=== PATIENT | female | born 1985 | race Caucasian/White ===

== ENCOUNTER → 2018-06-03 | Outpatient (CLI) | payer BC ==
--- NOTE | 2018-06-03 07:56 | US ---
EXAMINATION TYPE: US venous doppler duplex UE RT DATE OF EXAM: 06/03/2018 COMPARISON: NONE CLINICAL HISTORY: Z86.718 Personal hx of other venous thrombosis .... Pain SIDE PERFORMED: Right Patient has history of blood clot when she was 15. Right Arm: Negative for DVT Grayscale, color doppler, spectral doppler imaging performed of the deep veins of the right upper ext remity. There is normal flow, compressibility and vascular waveforms. IMPRESSION: No acute superficial or deep venous thrombosis in the right upper extremity identified.
== END | disposition home or self-care (01) ==
LOC: RADUSWWP 06:54 → MERGE 07:00
PROVIDERS: ATTEND Family Medicine
DX: R60.0 Localized edema (principal); Z86.718 Personal history of other venous thrombosis and embolism

== ENCOUNTER → 2018-06-10 | Outpatient (CLI) | payer BC ==
--- NOTE | 2018-06-10 09:39 | MM ---
Reason for exam: screening (asymptomatic). Baseline mammogram. History: Family history of breast cancer in maternal grandmother at age 40 and breast cancer in paternal grandmother at age 60. Physical Findings: Nurse did not find any significant physical abnormalities on exam. MG Screening Mammo w CAD Bilateral CC and MLO view(s) were taken. The breast tissue is heterogeneously dense. This may lower the sensitivity of mammography. Finding: There are typically benign round, diffuse/scattered calcifications in both breasts. There is no discrete abnormality. These results were verbally communicated with the patient and result sheet given to the patient on 06/10/18. ASSESSMENT: Benign, BI-RAD 2 RECOMMENDATION: Routine screening mammogram of both breasts at age 41.
== END ==
LOC: RADMAMWWP 06:53 → MERGE 07:00
PROVIDERS: ATTEND Family Medicine
DX: Z08 Encounter for follow-up examination after completed treatment for malignant neoplasm (principal); Z80.3 Family history of malignant neoplasm of breast
CPT/HCPCS: 77067

== ENCOUNTER → 2018-06-24 | Outpatient (CLI) | payer BC ==
[2018-06-24 16:57] LABS: HCT 37.5 % (34.0-46.0); HGB 12.2 gm/dL (11.4-16.0); MCHC 32.6 g/dL (31.0-37.0); Mean Platelet Volume 8.5; Platelet Count 273 k/uL (150-450); RBC 4.22 m/uL (3.80-5.40); RDW 13.3 % (11.5-15.5); WBC 7.1 k/uL (3.8-10.6)
[2018-06-24 17:06] LABS: Anion Gap 9 mmol/L; Blood Urea Nitrogen 8 mg/dL (7-17); Carbon Dioxide 25 mmol/L (22-30); Chloride 106 mmol/L (98-107); Potassium 4.7 mmol/L (3.5-5.1); Sodium 140 mmol/L (137-145)
== END | disposition home or self-care (01) ==
LOC: LABPAT 16:04
PROVIDERS: ATTEND Internal Medicine Interventional Cardiology
DX: Z01.812 Encounter for preprocedural laboratory examination (principal); I82.A11 Acute embolism and thrombosis of right axillary vein
CPT/HCPCS: 36415; 80051; 82565; 84520; 85027

== ENCOUNTER → 2018-06-25 | Day surgery (SDC) | payer BC ==
[2018-06-24 13:24] VITALS: BMI 21.9
[~2018-06-25] MED LIST: ASPIRIN 325 MG TAB PO STA; IOPAMIDOL-250 50ML BTL IV ONE; MIDAZOLAM (PF) 2 MG/2 ML VIAL IVP ONE; SODIUM CHLORIDE 0.9% 1,000 ML IV SCH
[2018-06-25 07:46] VITALS: RESP 18; TEMP 98.3
[2018-06-25 07:53] LABS: Basophils % (A) 1 %; Eosinophils # (A) 0.1 k/uL (0-0.7); Eosinophils % (A) 2 %; Lymphocytes # (A) 1.3 k/uL (1.0-4.8); Lymphocytes % (A) 26 %; MCH 29.4 pg (25.0-35.0); MCHC 33.4 g/dL (31.0-37.0); Mean Platelet Volume 8.2; Monocytes # (A) 0.4 k/uL (0-1.0); Monocytes % (A) 7 %; Neutrophils # (A) 3.2 k/uL (1.3-7.7); Neutrophils % (A) 63 %; Platelet Count 236 k/uL (150-450); RBC 4.09 m/uL (3.80-5.40); RDW 13.4 % (11.5-15.5); WBC 5.2 k/uL (3.8-10.6)
[2018-06-25 08:03] LABS: Anion Gap 8 mmol/L; Blood Urea Nitrogen 15 mg/dL (7-17); Calcium 9.3 mg/dL (8.4-10.2); Carbon Dioxide 24 mmol/L (22-30); Chloride 107 mmol/L (98-107); Glucose 82 mg/dL (74-99); Potassium 4.2 mmol/L (3.5-5.1); Sodium 139 mmol/L (137-145)
[2018-06-25 13:14] VITALS: BP 113/68; PULSE 72
--- NOTE | 2018-06-25 14:05 | IR ---
Fluoroscopy HISTORY: Pain in right arm 0.8 minutes fluoroscopy time supplied to the referring clinician. 228 intraoperative C-arm images do cument the procedure. See dictated report from cardiology.
--- NOTE | 2018-06-25 18:32 | AN ---
ANGIOGRAPHY REPORT DESCRIPTION OF PROCEDURE: June 25, 2018. PROCEDURE PERFORMED: Right upper extremity venogram. INDICATION: This is a pleasant 32-year-old female patient with known history of DVT of the right arm was diagnosed in 2001 by angiogram where the DVT was missed by venous duplex study. Recently has been experiencing symptoms of right arm numbness and symptoms reminded her with her DVT. She underwent a venous duplex study which came in to be unremarkable. She was referred by her primary care physician to undergo a venogram of the right upper extremity. APPROACH: Right arm with a peripheral vein. COMPLICATION: None. LEVEL OF SEDATION: Moderate with sedation length of about 15 minutes. PROCEDURE DESCRIPTION: After obtaining an informed consent, the patient was brought to the cardiac labeler. We obtained a peripheral vein in the right arm. After that, I did a right upper extremity venogram using the peripheral vein under DSA. The procedure was completed without any complication. FINDINGS: The vein in the right upper arm seems to be patent. The right subclavian vein is occluded just by the junction into the SVC. 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 POSTPROCEDURE MANAGEMENT: 1. Patient can be discharged home. 2. Follow up with the patient. MMODL / IJN: [id number] /
== END ==
LOC: CATHCVL 07:17
PROVIDERS: ATTEND Internal Medicine Interventional Cardiology
DX: I82.B11 Acute embolism and thrombosis of right subclavian vein (principal); Z86.718 Personal history of other venous thrombosis and embolism
CPT/HCPCS: 36005; 75820; 80048; 85025; 81025; Q9966; J2250

== ENCOUNTER → 2018-10-01 | Outpatient (CLI) | payer BC ==
--- NOTE | 2018-10-01 10:22 | CT ---
EXAMINATION TYPE: CT angio chest DATE OF EXAM: 10/01/2018 COMPARISON: None HISTORY: Right arm swelling, thoracic outlet syndrome CT DLP: 345.4 mGycm Automated exposure control for dose reduction was used. CONTRAST: CTA scan of the thorax is performed with IV Contrast, patient injected with 100 mL of Isovue 370, pul monary embolism protocol. MIP images are created and reviewed. 3D reconstructed images are created on an independent workstation and reviewed. FINDINGS: LUNGS: The lungs are grossly clear, there is no concerning parenchymal mass or nodule identified. T here is no pleural effusion or pneumothorax seen. The tracheobronchial tree is patent. AORTA: 4 super aortic branch vessels are present. No significant venous opacification is present. MEDIASTINUM: There is satisfactory enhancement of the pulmonary artery and its branches, there is no CT evidence for pulmonary embolism. There are no greater than 1 cm hilar or mediastinal lymph nodes. No pericardial effusion is seen. OTHER: No cervical rib is seen. IMPRESSION: EXAM LIMITED BY LACK OF VENOUS OPACIFICATION. FOR SUPER AORTIC BRANCH VESSELS WITHIN THE THORACIC AOR TA. NO EVIDENT CERVICAL RIB. DEDICATED MRI OR UPPER EXTREMITY VENOGRAPHY MAY BE OF BENEFIT.
== END | disposition home or self-care (01) ==
LOC: RADCTMAIN 07:17
PROVIDERS: ATTEND Internal Medicine Interventional Cardiology
DX: G54.0 Brachial plexus disorders (principal)
CPT/HCPCS: 71275

== ENCOUNTER → 2023-12-31 | Outpatient (CLI) | payer BC ==
--- NOTE | 2024-01-01 10:05 | MM ---
Reason for Exam: Screening (asymptomatic). Last mammogram was performed 5 year(s) and 6 month(s) ago. Patient History: Menarche at age 14. First Full-Term at age 26. Paternal grandmother had breast cancer, age 60. Maternal grandmother had breast cancer, age 40. Maternal aunt had breast cancer. Last menstrual period: 12/09/2023 Risk Values: Daly 5 year model risk: 0.4%. NCI Lifetime model risk: 11.2%. Prior Study Comparison: 06/10/2018 Bilateral Screening Mammogram, [facility]. Tissue Density: The breasts are heterogeneously dense, which may obscure small masses. Findings: Analyzed By CAD. Unchanged bilateral areas of asymmetric density. Possible obscured abnormality in the central outer right cc view anterior depth shows no persisting abnormality on 3-D images. There is no suspicious group of microcalcifications or new suspicious mass in either breast. Overall Assessment: Benign, BI-RAD 2 Management: Screening Mammogram of both breasts in 1 year. . Patient should continue monthly self-breast exams. A clinical breast exam by your physician is recommended on an annual basis. This exam should not preclude additional follow-up of suspicious palpable abnormalities. Note on Daly scores and lifetime risk: 1. A Daly score greater than 3% is considered moderate risk. If this is the case, consider specialist referral to assess eligibility for a risk reducing agent. 2. If overall lifetime risk for the development of breast cancer is 20% or higher, the patient may qualify for future screening with alternating mammogram and breast MRI. [facility], , 01/01/2024 10:02 AM. Electronically signed and approved by: Brian Gaytan M.D. Radiologist
== END | disposition home or self-care (01) ==
LOC: RADMAMWWP 07:14
PROVIDERS: ATTEND Obstetrics & Gynecology Obstetrics
CPT/HCPCS: 77063; 77067

== ENCOUNTER → 2024-05-10 | Outpatient (CLI) | payer BC ==
[2024-05-11 06:28] LABS: HCT 38.4 % (37.2-46.3); HGB 12.2 g/dL (12.0-15.0); MCH 30.4 pg (27.0-32.0); MCHC 31.8 g/dL (32.0-37.0); MCV 95.8 FL (80.0-97.0); Mean Platelet Volume 12.7 FL (9.5-12.2); NRBC Per 100 WBC 0 X 10*3/uL (0.00-0.01); Platelet Count 254 X 10*3/uL (140-440); RBC 4.01 X 10*6/uL (4.10-5.20); RDW 12.4 % (11.5-14.5); WBC 6.11 X 10*3/uL (4.50-10.00)
[2024-05-11 06:29] LABS: Basophils # (A) 0.04 X 10*3/uL (0.00-0.10); Basophils % (A) 0.7 %; Eosinophils # (A) 0.14 X 10*3/uL (0.04-0.35); Eosinophils % (A) 2.3 %; Lymphocytes # (A) 1.98 X 10*3/uL (0.90-5.00); Lymphocytes % (A) 32.4 %; Monocytes # (A) 0.57 X 10*3/uL (0.20-1.00); Monocytes % (A) 9.3 %; Neutrophils # (A) 3.37 X 10*3/uL (1.80-7.70); Neutrophils % (A) 55.1 %
== END | disposition home or self-care (01) ==
LOC: LABPAT 10:11
PROVIDERS: ATTEND Obstetrics & Gynecology Obstetrics
DX: Z01.812 Encounter for preprocedural laboratory examination (principal); N92.0 Excessive and frequent menstruation with regular cycle
CPT/HCPCS: 85025